=== PATIENT | female | born 1995 | race Caucasian/White ===

== ENCOUNTER 2020-04-05 06:11 | Emergency (ER) | payer MEDICAID ==
[~2020-04-05] VITALS: Ht 154.9 cm; Wt 64.0 kg
[2020-04-05] MEDS ORDERED: ACETAMINOPHEN 325MG TABLET PO STA (06:36)
[2020-04-05 07:00] LABS: CLARITY URINE CLOUDY (CLEAR); COLOR URINE YELLOW (YELLOW); KETONES URINE NEGATIVE (NEGATIVE); LEUKOCYTE ESTERASE URINE 3+ (NEGATIVE); NITRITE URINE NEGATIVE (NEGATIVE); OCCULT BLOOD URINE NEGATIVE (NEGATIVE); PROTEIN URINE NEGATIVE (NEGATIVE); SPECIFIC GRAVITY URINE 1.021 (1.005-1.030); UROBILINOGEN URINE 0.2 E.U./dL (0.2-1.0)
[2020-04-05] MEDS ORDERED: CEPH250C2 PO (07:26)
[2020-04-05] MEDS ORDERED: IBUP-2029 PO (07:27)
[2020-04-05 07:50] VITALS: BP 117/75
== END 2020-04-05 07:52 | disposition home or self-care (01) ==
LOC: ER 06:11
DX: N30.00 Acute cystitis without hematuria (principal)
CPT/HCPCS: 81003; 81025; 99283